=== PATIENT | male | born 1960 | race African-American/Black ===

== ENCOUNTER 2023-04-10 14:08 | Emergency (ER) | payer SELFPAY ==
[~2023-04-10] VITALS: Ht 182.9 cm; Wt 100.0 kg
[2023-04-10 14:11] VITALS: O2SAT 95
[2023-04-10] MEDS ORDERED: IOHEXOL-350 100 ML BOTTLE ONE (14:45)
[2023-04-10 14:46] LABS: BASOPHILS % 1.3 % (0.0-2.0); EOSINOPHILS % 4.8 % (0.0-5.0); HEMATOCRIT. 48.4 % (42.0-52.0); HEMOGLOBIN. 15.7 g/dL (14.0-18.0); LYMPHOCYTES % 34.8 % (20.0-50.0); MEAN CORPUSCULAR HEMOGLOBIN 29.2 pg (28.0-32.0); MEAN CORPUSCULAR HGB CONC 32.3 g/dL (31.0-37.0); MEAN CORPUSCULAR VOLUME 90.4 fL (80.0-94.0); MEAN PLATELET VOLUME 9.2 fl (7.4-10.4); MONOCYTES % 10.4 % (2.0-8.0); NEUTROPHILS % 48.7 % (40.0-76.0); PLATELET 141 x1000/uL (130-400); RED BLOOD CELL COUNT 5.36 mill/uL (4.7-6.1); WHITE BLOOD COUNT 5.6 x1000/uL (4.5-11.0)
[2023-04-10 15:02] LABS: BG BASE EXCESS 4.1 mmol/L (-2.0-2.0); BG CARBOXYHEMOGLOBIN 5.3 % (0.5-1.5); BG DEOXYHEMOGLOBIN 5.1 % (0.0-5.0); BG FRACTION INSPIRED OXYGEN 21; BG HCO3 ACT 29.3 mmol/L (22.0-26.0); BG METHEMOGLOBIN 0.3 % (0.0-1.5); BG OXYGEN SATURATION 94.6 % (92.0-98.5); BG OXYHEMOGLOBIN 89.3 % (94.0-97.0); BG PCO2 45.7 mmHg (35.0-45.0); BG PH 7.425 (7.350-7.450); BG PO2 68.4 mmHg (75.0-100.0); BG SAMPLE SITE RIGHT RADIAL; BG TOTAL HEMOGLOBIN 15.4 g/dL (12.0-18.0); BG VENT MODE ROOM AIR
[2023-04-10 15:02] LABS: CHLORIDE 103 mEq/L (98-107); INDEX HEMOLYSI 2 (1-3); INDEX ICTERIC 2 (1-4); INDEX LIPEMIC 1 (1-3); POTASSIUM 3.1 mEq/L (3.5-5.1); SODIUM 139 mEq/L (136-145)
[2023-04-10 15:05] LABS: CLARITY URINE CLEAR (CLEAR); COLOR URINE DARK YELLOW (YELLOW); GLUCOSE URINE 3+ (NEGATIVE); KETONES URINE NEGATIVE (NEGATIVE); LEUKOCYTE ESTERASE URINE 1+ (NEGATIVE); NITRITE URINE NEGATIVE (NEGATIVE); OCCULT BLOOD URINE NEGATIVE (NEGATIVE); PH URINE 5.5 (4.5-8.0); PROTEIN URINE 2+ (NEGATIVE); SPECIFIC GRAVITY URINE 1.015 (1.005-1.030)
[2023-04-10 15:12] LABS: ALANINE AMINOTRANSFERASE 20 IU/L (13-61); ALBUMIN 3.4 g/dL (3.4-5.0); ASPARTATE AMINOTRANSFERASE 29 IU/L (15-37); BILIRUBIN TOTAL 2.4 mg/dL (0.1-1.0); CALCIUM 8.1 mg/dL (8.5-10.1); CARBON DIOXIDE 30 mEq/L (21-32); CREATININE 1.3 mg/dL (0.6-1.3); ETHANOL BLOOD < 10 mg/dL (<10); GLUCOSE 75 mg/dL (70-105); NT PRO B-TYPE NATRIURETIC PEP 7142 pg/mL (5-125); TROPONIN I HIGH SENSITIVITY 30 ng/L (<78); UREA NITROGEN BLOOD 24 mg/dL (7-21)
[2023-04-10 15:18] LABS: SQUAMOUS EPITHELIAL CELL URINE 2+ /lpf (RARE/1+)
[2023-04-10 15:19] LABS: BACTERIA URINE TRACE
[2023-04-10 15:20] LABS: *AMPHETAMINES SCREEN URINE NEGATIVE (NEGATIVE); *BARBITURATES SCREEN URINE NEGATIVE (NEGATIVE); *BENZODIAZEPINES SCREEN URINE NEGATIVE (NEGATIVE); *COCAINE SCREEN URINE NEGATIVE (NEGATIVE); CANNABINOID URINE SCREEN PRESUMTIVE POSITIVE (NEGATIVE); ECSTASY MDMA SCREEN URINE NEGATIVE (NEGATIVE); OPIATES URINE SCREEN NEGATIVE (NEGATIVE); PHENCYCLIDINE URINE SCREEN NEGATIVE (NEGATIVE); RBC URINE 0-2 /hpf (0-2); WBC URINE 0-2 /hpf (0-2)
[2023-04-10 15:22] LABS: TRICHOMONAS URINE 1+
[2023-04-10 15:26] LABS: LACTIC ACID 2.4 mmol/L (0.4-2.0)
[2023-04-10] MEDS ORDERED: POTASSIUM CHLORIDE 20MEQ TABLET SR PO NR (15:30)
[2023-04-10 15:35] LABS: D-DIMER 0.39 mg/L FEU (<0.50); INR 1.3
[2023-04-10 15:37] VITALS: BP 104/51; PULSE 74; RESP 14; TEMP 98.6
[2023-04-10] MEDS ORDERED: METRONIDAZOLE 500MG TABLET PO SCH (15:45)
[2023-04-10 16:35] LABS: TROPONIN I HIGH SENSITIVITY 31 ng/L (<78)
== END 2023-04-10 17:21 | disposition left against medical advice (07) ==
LOC: ER 14:18 → CANBEDREQ 17:21 → ER 17:21
DX: R41.82 Altered mental status, unspecified (principal); A59.9 Trichomoniasis, unspecified; I49.9 Cardiac arrhythmia, unspecified; I95.9 Hypotension, unspecified
CPT/HCPCS: 80053; 80305; 81003; 80320; 82962; 83880; 83605; 85025; 85379; 85610; 86850; 86900; 86901; 87040; 84484; 36415; 71045; 70496; 70498; 70450; 82805; 82375; 93005; 99285; 36600; Q9967; Z7610 ×2; G0480